=== PATIENT | female | born 1955 | race Caucasian/White ===

== ENCOUNTER 2016-09-28 08:46 | Emergency (ER) | payer BC, OTHER ==
[~2016-09-28] VITALS: Ht 167.6 cm; Wt 104.0 kg
[2016-09-28] MEDS ORDERED: KETOROLAC 30 MG/1 ML IM ONE (09:30)
[2016-09-28 10:30] VITALS: BP 127/85
== END 2016-09-28 10:38 | disposition home or self-care (01) ==
LOC: ED 09:47
DX: S42.255A Nondisplaced fracture of greater tuberosity of left humerus, initial encounter for closed fracture (principal); J45.909 Unspecified asthma, uncomplicated; I10 Essential (primary) hypertension; G89.29 Other chronic pain; W19.XXXA Unspecified fall, initial encounter; Y93.89 Activity, other specified; Y92.098 Other place in other non-institutional residence as the place of occurrence of the external cause; Y99.8 Other external cause status
CPT/HCPCS: 29105; 73030; 96372; 99284; J1885

== ENCOUNTER 2017-10-08 17:07 | Inpatient (IN) | payer OTHER ==
[~2017-10-08] VITALS: Ht 167.6 cm; Wt 96.7 kg
[2017-10-08] MEDS ORDERED: EMPA25TA PO (17:44)
[2017-10-08] MEDS ORDERED: METF500T5 PO (17:44)
[2017-10-08] MEDS ORDERED: AMLO10TA2 PO (17:44)
[2017-10-08] MEDS ORDERED: ATOR-2 PO (17:44)
[2017-10-08] MEDS ORDERED: LEVO150T PO (17:44)
[2017-10-08] MEDS ORDERED: IRBE300T16 PO (17:45)
[2017-10-08 18:03] LABS: BASOPHILS # (AUTO) 0.02 x10^3/uL (0-0.1); BASOPHILS % (AUTO) 0 % (0-1); EOSINOPHILS # (AUTO) 0.05 x10^3/uL (0-0.4); EOSINOPHILS % (AUTO) 1 % (1-7); LYMPHOCYTES # (AUTO) 2.16 x10^3/uL (1-3.4); LYMPHOCYTES % (AUTO) 19 % (22-44); MD NO; MEAN CORPUSCULAR HEMOGLOBIN 30.7 pg (27.0-34.8); MEAN CORPUSCULAR VOLUME 90.3 fL (80-100); MEAN PLATELET VOLUME 9.9 fL (7.4-10.4); MONOCYTES # (AUTO) 0.43 x10^3/uL (0.2-0.8); MONOCYTES % (AUTO) 4 % (2-9); NEUTROPHILS # (AUTO) 8.44 x10^3/uL (1.8-6.8); NEUTROPHILS % (AUTO) 76 % (42-75); PLATELET COUNT 239 x10^3/uL (130-400); RED BLOOD COUNT 5.36 x10^6/uL (3.82-5.3); RED CELL DISTRIBUTION WIDTH 12.8 % (9.6-15.2)
[2017-10-08] MEDS ORDERED: ONDANSETRON 2MG/ML, 2ML ONE (18:08)
[2017-10-08 18:14] LABS: ALANINE AMINOTRANSFERASE 22 U/L (12-78); ALBUMIN 4.1 g/dL (3.4-5.0); ANION GAP 14 mmol/L (5-15); CALCIUM 9.3 mg/dL (8.5-10.1); CHLORIDE 104 mmol/L (98-107)
[2017-10-08 18:16] LABS: ALKALINE PHOSPHATASE 73 U/L (45-117); BILIRUBIN,TOTAL 0.8 mg/dL (0.2-1.0)
[2017-10-08] MEDS ORDERED: ONDANSETRON 2MG/ML, 2ML IVPush ONE (18:30)
[2017-10-08] MEDS ORDERED: SODIUM CHLORIDE 0.9% 1,000ML IVBOLUS ONE (18:30)
[2017-10-08] MEDS ORDERED: SODIUM CHLORIDE FLUSH 10ML SYR IVF ONE (18:30)
[2017-10-08 19:07] LABS: CULTURE INDICATED? NO; MICROSCOPIC NOT IND
[2017-10-08] MEDS ORDERED: OMNIPAQUE 350 MG/ML, 100ML BOTTLE ONE (19:19)
[2017-10-08] MEDS ORDERED: HYDROmorphone 2 MG/ML, 1ML ONE (19:32)
[2017-10-08] MEDS ORDERED: SODIUM CHLORIDE 0.9% 1,000 ML IV ONE (19:54)
[2017-10-08] MEDS ORDERED: HYDROmorphone 1 MG/ML, 1ML IV ONE (20:00)
[2017-10-08] MEDS ORDERED: BISACODYL 10 MG SUPP PR PRN (21:00)
[2017-10-08] MEDS: LACTATED RINGERS 1,000 ML IV SCH (21:00)
[2017-10-08] MEDS ORDERED: hydrALAzine 20 MG/ML, 1ML IVPush PRN (21:00)
[2017-10-08] MEDS: INSULIN LISPRO 100 UNITS/ML, PEN SQ-INSULIN SCH (21:00)
[2017-10-08] MEDS ORDERED: DEXTROSE 50%, 50ML SYRINGE IVPush PRN (21:00)
[2017-10-08] MEDS ORDERED: DOCUSATE 100 MG CAPSULE PO PRN (21:00)
[2017-10-08] MEDS ORDERED: DEXTROSE 4 GM TAB.CHEW PO PRN (21:00)
[2017-10-08] MEDS: SODIUM CHLORIDE FLUSH 10ML SYR IVF SCH (21:00)
[2017-10-08] MEDS: ENOXAPARIN 40 MG/0.4 ML SQ SCH (21:00)
[2017-10-08] MEDS ORDERED: ACETAMINOPHEN 325 MG TABLET PO PRN (21:00)
[2017-10-08] MEDS ORDERED: ENALAPRILAT 1.25 MG/ML, 2ML IVPush PRN (21:00)
[2017-10-08] MEDS ORDERED: morphine SULFATE 10 MG/ML, 1ML IVPush PRN (21:00)
[2017-10-08] MEDS: ATORVASTATIN 80 MG TABLET PO SCH (21:00)
[2017-10-08] MEDS ORDERED: POLYETHYLENE GLYCOL 17 GM PACKET PO PRN (21:00)
[2017-10-08] MEDS ORDERED: GLUCAGON 1 MG IM PRN (21:00)
[2017-10-08] MEDS ORDERED: METOCLOPRAMIDE 5 MG/ML, 2ML IVPush PRN (21:00)
[2017-10-08] MEDS ORDERED: ONDANSETRON ODT 4 MG PO PRN (21:00)
[2017-10-09 01:55] VITALS: BP 106/57
[2017-10-09 05:58] LABS: BASOPHILS # (AUTO) 0.03 x10^3/uL (0-0.1); BASOPHILS % (AUTO) 0 % (0-1); EOSINOPHILS # (AUTO) 0.11 x10^3/uL (0-0.4); EOSINOPHILS % (AUTO) 1 % (1-7); LYMPHOCYTES # (AUTO) 3.64 x10^3/uL (1-3.4); LYMPHOCYTES % (AUTO) 45 % (22-44); MD NO; MEAN CORPUSCULAR HEMOGLOBIN 30.7 pg (27.0-34.8); MEAN CORPUSCULAR HGB CONC 33.7 g/dL (32.4-35.8); MEAN CORPUSCULAR VOLUME 91.3 fL (80-100); MEAN PLATELET VOLUME 10.1 fL (7.4-10.4); MONOCYTES # (AUTO) 0.59 x10^3/uL (0.2-0.8); MONOCYTES % (AUTO) 7 % (2-9); NEUTROPHILS # (AUTO) 3.65 x10^3/uL (1.8-6.8); NEUTROPHILS % (AUTO) 45 % (42-75); PLATELET COUNT 212 x10^3/uL (130-400); RED BLOOD COUNT 4.63 x10^6/uL (3.82-5.3); RED CELL DISTRIBUTION WIDTH 12.5 % (9.6-15.2)
[2017-10-09] MEDS: LACTATED RINGERS 1,000 ML IV SCH ×3 (05:59→21:08)
[2017-10-09] MEDS: LEVOTHYROXINE 150 MCG TABLET PO SCH (05:59)
[2017-10-09 06:05] LABS: CHLORIDE 110 mmol/L (98-107)
[2017-10-09 06:12] LABS: ALANINE AMINOTRANSFERASE 15 U/L (12-78); ALBUMIN 3.1 g/dL (3.4-5.0); ALKALINE PHOSPHATASE 52 U/L (45-117); CALCIUM 8.5 mg/dL (8.5-10.1); CREATININE 0.54 mg/dL (0.55-1.02); TOTAL PROTEIN 6.3 g/dL (6.4-8.2)
[2017-10-09 06:28] LABS: ANION GAP 9 mmol/L (5-15)
[2017-10-09] MEDS: INSULIN LISPRO 100 UNITS/ML, PEN SQ-INSULIN SCH ×4 (07:00→20:28)
[2017-10-09] MEDS: SODIUM CHLORIDE FLUSH 10ML SYR IVF SCH ×2 (07:37→21:00)
[2017-10-09] MEDS: AMLODIPINE 5 MG TABLET PO SCH (07:38)
[2017-10-09] MEDS: IRBESARTAN 300 MG TABLET PO SCH (07:39)
[2017-10-09 08:22] VITALS: BP 122/83
[2017-10-09 15:54] VITALS: BP 140/87
[2017-10-09 19:24] VITALS: BP 144/88
[2017-10-09] MEDS: ENOXAPARIN 40 MG/0.4 ML SQ SCH (20:00)
[2017-10-09] MEDS: ATORVASTATIN 80 MG TABLET PO SCH (21:08)
[2017-10-10 02:00] VITALS: BP 124/79
[2017-10-10] MEDS: LEVOTHYROXINE 150 MCG TABLET PO SCH (05:17)
[2017-10-10] MEDS: LACTATED RINGERS 1,000 ML IV SCH ×3 (05:17→20:37)
[2017-10-10 06:00] LABS: CHLORIDE 108 mmol/L (98-107)
[2017-10-10 06:22] LABS: ALBUMIN 3.1 g/dL (3.4-5.0); ANION GAP 9 mmol/L (5-15); CALCIUM 8.7 mg/dL (8.5-10.1); CREATININE 0.54 mg/dL (0.55-1.02); THYROID STIMULATING HORMONE 0.372 mIU/L (0.358-3.740)
[2017-10-10 07:29] VITALS: BP 132/82
[2017-10-10] MEDS: INSULIN LISPRO 100 UNITS/ML, PEN SQ-INSULIN SCH ×4 (08:52→20:48)
[2017-10-10] MEDS: SODIUM CHLORIDE FLUSH 10ML SYR IVF SCH ×2 (09:00→20:37)
[2017-10-10] MEDS: IRBESARTAN 300 MG TABLET PO SCH (09:17)
[2017-10-10] MEDS: AMLODIPINE 5 MG TABLET PO SCH (09:17)
[2017-10-10 12:18] VITALS: BP 138/84
[2017-10-10 20:11] VITALS: BP 155/95
[2017-10-10] MEDS: ENOXAPARIN 40 MG/0.4 ML SQ SCH (20:33)
[2017-10-10] MEDS: ATORVASTATIN 80 MG TABLET PO SCH (20:37)
[2017-10-11 01:12] VITALS: BP 108/70
[2017-10-11] MEDS: LACTATED RINGERS 1,000 ML IV SCH ×2 (04:43→13:00)
[2017-10-11] MEDS: LEVOTHYROXINE 150 MCG TABLET PO SCH (05:07)
[2017-10-11 06:13] LABS: ALBUMIN 3.2 g/dL (3.4-5.0); ANION GAP 11 mmol/L (5-15); CALCIUM 8.9 mg/dL (8.5-10.1); CHLORIDE 109 mmol/L (98-107); CREATININE 0.54 mg/dL (0.55-1.02)
[2017-10-11 07:17] VITALS: BP 143/88
[2017-10-11] MEDS ORDERED: MAGNESIUM SULFATE PMX 2GM/50ML 50 ML IV ONE (07:30)
[2017-10-11] MEDS: AMLODIPINE 5 MG TABLET PO SCH (08:03)
[2017-10-11] MEDS: IRBESARTAN 300 MG TABLET PO SCH (08:03)
[2017-10-11] MEDS: INSULIN LISPRO 100 UNITS/ML, PEN SQ-INSULIN SCH ×2 (08:05→12:01)
[2017-10-11] MEDS: SODIUM CHLORIDE FLUSH 10ML SYR IVF SCH (08:13)
[2017-10-11 12:31] VITALS: BP 120/80
== END 2017-10-11 14:15 | disposition home or self-care (01) | DRG 395 ==
LOC: ED 20:03 → EDIP 20:05 → 3NE 20:35 → DCLOUNGE 10-11 14:07
PROVIDERS: ADMIT Internal Medicine; ATTEND Internal Medicine
DX: K42.0 Umbilical hernia with obstruction, without gangrene (principal); E03.9 Hypothyroidism, unspecified; E11.65 Type 2 diabetes mellitus with hyperglycemia; E86.0 Dehydration; I10 Essential (primary) hypertension; J45.909 Unspecified asthma, uncomplicated; M19.90 Unspecified osteoarthritis, unspecified site; Z80.8 Family history of malignant neoplasm of other organs or systems; Z83.3 Family history of diabetes mellitus; Z90.49 Acquired absence of other specified parts of digestive tract; Z90.710 Acquired absence of both cervix and uterus
CPT/HCPCS: 36415; 74177; 80048; 80053; 81003; 82040; 82962; 83690; 83735; 84100; 84443; 85025; 93005; 96361; 96374; 99285; J1170; J2405; Q9967; J1815; J3475; J7030; J7120